=== PATIENT | female | born 1945 | race Caucasian/White ===

== ENCOUNTER 2021-04-28 11:46 | Outpatient (CLI) | payer MEDICARE, BC | END 2021-04-28 11:47 | disposition home or self-care (01) | LOC: CSHMAMMO 11:46 | PROVIDERS: ATTEND Obstetrics & Gynecology | DX: Z12.31 Encounter for screening mammogram for malignant neoplasm of breast (principal); Z80.3 Family history of malignant neoplasm of breast | CPT/HCPCS: 77063; 77067 ==

== ENCOUNTER 2022-04-29 09:23 | Outpatient (CLI) | payer MEDICARE, BC | END 2022-04-29 09:24 | disposition home or self-care (01) | LOC: CSHMAMMO 09:23 | PROVIDERS: ATTEND Nurse Practitioner Family | DX: Z12.31 Encounter for screening mammogram for malignant neoplasm of breast (principal); M85.89 Other specified disorders of bone density and structure, multiple sites; M81.0 Age-related osteoporosis without current pathological fracture; Z80.3 Family history of malignant neoplasm of breast | CPT/HCPCS: 77063; 77067; 77080 ==

== ENCOUNTER 2023-05-11 11:28 | Outpatient (CLI) | payer MEDICARE, BC | END 2023-05-11 11:29 | disposition home or self-care (01) | LOC: CSHMAMMO 11:28 | PROVIDERS: ATTEND Nurse Practitioner Family | DX: Z12.31 Encounter for screening mammogram for malignant neoplasm of breast (principal); Z80.3 Family history of malignant neoplasm of breast | CPT/HCPCS: 77063; 77067 ==

== ENCOUNTER 2023-07-25 14:33 | Outpatient (CLI) | payer MEDICARE | END 2023-07-25 14:34 | disposition home or self-care (01) | LOC: CSHMAMMO 14:33 | PROVIDERS: ATTEND Internal Medicine Rheumatology | DX: M81.0 Age-related osteoporosis without current pathological fracture (principal); M85.89 Other specified disorders of bone density and structure, multiple sites | CPT/HCPCS: 77080 ==

== ENCOUNTER 2024-05-14 10:42 | Outpatient (CLI) | payer MEDICARE | END 2024-05-14 10:43 | disposition home or self-care (01) | LOC: CSHMAMMO 10:42 | PROVIDERS: ATTEND Nurse Practitioner Family | DX: Z12.31 Encounter for screening mammogram for malignant neoplasm of breast (principal); Z80.3 Family history of malignant neoplasm of breast | CPT/HCPCS: 77063; 77067 ==

== ENCOUNTER 2025-05-15 09:37 | Outpatient (CLI) | payer MEDICARE | END 2025-05-15 09:38 | disposition home or self-care (01) | LOC: CSHMAMMO 09:37 | PROVIDERS: ATTEND Nurse Practitioner Family | DX: Z12.31 Encounter for screening mammogram for malignant neoplasm of breast (principal); N64.89 Other specified disorders of breast; Z80.3 Family history of malignant neoplasm of breast | CPT/HCPCS: 77063; 77067 ==

== ENCOUNTER 2025-05-21 08:52 | Outpatient (CLI) | payer MEDICARE | END 2025-05-21 08:53 | disposition home or self-care (01) | LOC: CSHMAMMO 08:52 | PROVIDERS: ATTEND Nurse Practitioner Family | DX: N64.89 Other specified disorders of breast (principal) | CPT/HCPCS: 77065; G0279 ==